=== PATIENT | female | born 1985 | race Asian ===

== ENCOUNTER 2017-02-12 00:18 | Inpatient (IN) | payer SELFPAY ==
[~2017-02-12] VITALS: Ht 160 cm; Wt 68.9 kg
[2017-02-12] MEDS ORDERED: LACTATED RINGERS 1,000 ML IV SCH (00:37)
[2017-02-12] MEDS ORDERED: CITRIC ACID/SODIUM CITRATE 30 ML UDC PO ONE (00:40)
[2017-02-12] MEDS ORDERED: FERR325E14 PO (01:00)
[2017-02-12] MEDS ORDERED: PNV1TABL5 PO (01:00)
[2017-02-12 01:14] LABS: BASOPHILS # (AUTO) 0.1 K/uL (0.00-0.22); BASOPHILS % (AUTO) 1.3 % (0.0-2.0); EOSINOPHILS # (AUTO) 0.1 K/uL (0-0.4); EOSINOPHILS % (AUTO) 0.7 % (0.0-4.0); HEMATOCRIT 36.6 % (36-48); HEMOGLOBIN 11.5 g/dL (12.0-16.0); LYMPHOCYTES # (AUTO) 1.4 K/uL (2.5-16.5); LYMPHOCYTES % (AUTO) 18.7 % (20.5-51.1); MEAN CORPUSCULAR HEMOGLOBIN 27 pg (27-31); MEAN CORPUSCULAR HGB CONC 31 g/dL (33-37); MEAN CORPUSCULAR VOLUME 85 fL (80-94); MONOCYTES # (AUTO) 0.6 K/uL (0.8-1.0); MONOCYTES % (AUTO) 8.3 % (1.7-9.3); NEUTROPHILS # (AUTO) 5.5 K/uL (1.8-7.7); PLATELET COUNT (AUTO) 149 K/uL (140-450); RED BLOOD CELL COUNT(AUTO) 4.33 MIL/uL (4.20-5.40); RED CELL DISTRIBUTION WIDTH 20.8 % (11.6-13.7); WHITE BLOOD COUNT (AUTO) 7.7 K/uL (4.8-10.8)
[2017-02-12 01:23] LABS: APPEARANCE,URINE CLEAR (CLEAR); BILIRUBIN,URINE NEGATIVE (NEGATIVE); BLOOD, URINE 1+ (NEGATIVE); COLOR,URINE YELLOW (YELLOW); LEUKOCYTE ESTERASE ,URINE NEGATIVE (NEGATIVE); NITRITE, URINE NEGATIVE (NEGATIVE); UGLUCOSE NEGATIVE (NEGATIVE)
[2017-02-12 01:29] LABS: ALBUMIN 2.5 g/dL (3.4-5.0); ANION GAP 14.8 (8-16); CARBON DIOXIDE 20.6 mmol/L (21-32); CREATININE 0.7 mg/dL (0.6-1.3); POTASSIUM 3.4 mmol/L (3.5-5.1); TOTAL BILIRUBIN 0.2 mg/dL (0.0-1.0)
[2017-02-12 01:54] LABS: RBC,URINE 0-5 (RARE) /HPF (0-5); WBC,URINE 0-5 (RARE) /HPF (0-5)
[2017-02-12 01:56] VITALS: BP 118/72
[2017-02-12] MEDS ORDERED: INFLUENZA VIRUS VACCINE QUAD 0.5 ML SYR IMVAC SCH (02:00)
[2017-02-12] MEDS ORDERED: CITRIC ACID/SODIUM CITRATE 30 ML UDC ONE (05:26)
[2017-02-12] MEDS ORDERED: ceFAZolin 1,000 MG VIAL ONE (05:26)
[2017-02-12] MEDS ORDERED: ONDANSETRON 4 MG/2 ML VIAL IVP ONE (06:00)
[2017-02-12] MEDS ORDERED: ePHEDrine 50 MG/ML VIAL IV ONE (06:00)
[2017-02-12] MEDS ORDERED: KETAMINE 500 MG/5 ML VIAL ONE (06:19)
[2017-02-12] MEDS ORDERED: fentaNYL 0.05 MG/ML VIAL ONE (06:19)
[2017-02-12] MEDS ORDERED: MIDAZOLAM 2 MG/2 ML VIAL ONE (06:19)
[2017-02-12] MEDS ORDERED: MORPHINE PRES FREE 10 MG/10 ML AMP IV ONE (06:20)
[2017-02-12] MEDS ORDERED: ceFAZolin 1,000 MG VIAL IVP ONE (06:20)
[2017-02-12] MEDS ORDERED: CARBOPROST 250 MCG/ML AMP IM ONE (06:21)
[2017-02-12] MEDS ORDERED: METHYLERGONOVINE 0.2 MG/ML AMP ONE (06:21)
[2017-02-12] MEDS ORDERED: TRIAMCINOLONE 10 MG/ML 5ML VIAL ONE (06:21)
[2017-02-12] MEDS ORDERED: OXYTOCIN 10 UNITS/ML VIAL ONE (06:21)
[2017-02-12] MEDS ORDERED: diphenhydrAMINE 50 MG/ML VIAL IVP PRN (06:50)
[2017-02-12] MEDS ORDERED: ONDANSETRON 4 MG/2 ML VIAL IVP PRN (06:50)
[2017-02-12] MEDS ORDERED: KETOROLAC 30 MG/ML VIAL IVP PRN (06:50)
[2017-02-12] MEDS ORDERED: TRIMETHOBENZAMIDE 200 MG/2 ML SYR IM PRN (07:05)
[2017-02-12] MEDS ORDERED: oxyCODONE/APAP 5/325 MG 1 TAB TAB PO PRN (07:05)
[2017-02-12] MEDS ORDERED: METHYLERGONOVINE 0.2 MG/ML AMP IM PRN (07:05)
[2017-02-12] MEDS ORDERED: SIMETHICONE 80 MG TAB.CHEW PO PRN (07:05)
[2017-02-12] MEDS ORDERED: MEASLES, MUMPS, AND RUBELLA 1 VIAL SQVAC PRN (07:05)
[2017-02-12] MEDS ORDERED: HYDROcodone/APAP 5/325 MG 1 TAB TAB PO PRN (07:05)
--- NOTE | 2017-02-12 08:53 | NUR ---
PATIENT HAS BEEN SCREENED AND CATEGORIZED LOW NUTRITION RISK. PATIENT WILL BE SEEN WITHIN 7 DAYS OF ADMISSION. 02/18/[address]
[2017-02-12] MEDS: OXYTOCIN 20 UNITS in LACTATED RINGERS 1,000 ML IV SCH (16:32)
[2017-02-12] MEDS ORDERED: DOCUSATE SOD/SENNA 50/8.6 MG 1 TAB PO SCH (21:00)
[2017-02-12] MEDS ORDERED: TEMAZEPAM 15 MG CAP PO PRN (21:00)
[2017-02-12] MEDS ORDERED: OXYTOCIN 20 UNITS/LR PREMIX 1,000 ML IV ONE (21:20)
[2017-02-12 23:12] LABS: RAPID PLASMA REAGIN NON-REACTIVE (Non Reactiv)
[2017-02-13] MEDS: OXYTOCIN 20 UNITS in LACTATED RINGERS 1,000 ML IV SCH (00:55)
[2017-02-13 08:09] LABS: BASOPHILS # (AUTO) 0.1 K/uL (0.00-0.22); BASOPHILS % (AUTO) 0.9 % (0.0-2.0); EOSINOPHILS # (AUTO) 0.1 K/uL (0-0.4); EOSINOPHILS % (AUTO) 0.4 % (0.0-4.0); HEMATOCRIT 35.5 % (36-48); HEMOGLOBIN 11.4 g/dL (12.0-16.0); LYMPHOCYTES # (AUTO) 1.3 K/uL (2.5-16.5); LYMPHOCYTES % (AUTO) 9.7 % (20.5-51.1); MEAN CORPUSCULAR HEMOGLOBIN 27 pg (27-31); MEAN CORPUSCULAR HGB CONC 32 g/dL (33-37); MEAN CORPUSCULAR VOLUME 84 fL (80-94); MONOCYTES # (AUTO) 0.8 K/uL (0.8-1.0); MONOCYTES % (AUTO) 5.8 % (1.7-9.3); NEUTROPHILS # (AUTO) 11.3 K/uL (1.8-7.7); NEUTROPHILS % (AUTO) 83.2 % (42.2-75.2); PLATELET COUNT (AUTO) 147 K/uL (140-450); RED BLOOD CELL COUNT(AUTO) 4.23 MIL/uL (4.20-5.40); RED CELL DISTRIBUTION WIDTH 20.7 % (11.6-13.7); WHITE BLOOD COUNT (AUTO) 13.6 K/uL (4.8-10.8)
[2017-02-13] MEDS: IBUPROFEN 800 MG TAB PO PRN (16:47)
[2017-02-14] MEDS: IBUPROFEN 800 MG TAB PO PRN (15:48)
[2017-02-15] MEDS: IBUPROFEN 800 MG TAB PO PRN (06:09)
== END 2017-02-15 10:13 | disposition home or self-care (01) | DRG 766 ==
LOC: MLD 00:18 → MFCC 08:48
PROVIDERS: ADMIT Obstetrics & Gynecology; ATTEND Obstetrics & Gynecology
PROC: 3E0234Z Introduction of Serum, Toxoid and Vaccine into Muscle, Percutaneous Approach (ICD-10-PCS; 2017-02-12)
PROC: 10D00Z1 Extraction of Products of Conception, Low, Open Approach (ICD-10-PCS; principal; 2017-02-12 06:00)
DX: O34.219 Maternal care for unspecified type scar from previous cesarean delivery (principal); Z23 Encounter for immunization; Z37.0 Single live birth; Z3A.39 39 weeks gestation of pregnancy
CPT/HCPCS: 36415; 51702; 80053; 81001; 85025; 86592; 86886; 86900; 86901; 87086; 90658; 90715; J0690; J2210; J2250; J2270; J2405; J2590; J3010; J3301; J3490; J7060; J7120